=== PATIENT | male | born 1980 | race Caucasian/White ===

== ENCOUNTER 2018-04-08 06:02 | Inpatient (IN) | payer OTHER ==
[~2018-04-08] VITALS: Ht 190.5 cm; Wt 91.8 kg
--- NOTE | 2018-04-08 06:25 | NUR ---
PT PRESENTED WITH C/O COUGH AND HIGH FEVERS X 3 DAYS SINCE RETURNING HOME FROM [place]. DENIES NAUSEA AT THIS TIME, DID VOMIT X 2 AT 2130 AND 2230 LAST NIGHT. DENIES DIARRHEA. MONITORS APPLIED, FAMILY AT BEDSIDE, SIDERAILS UP X2, CALL LIGHT WITHIN REACH. AWAITING ERP FOR EVAL AND ORDERS
[2018-04-08] MEDS ORDERED: IBUPROFEN 200 MG TABLET ONE (06:39)
[2018-04-08] MEDS ORDERED: ACETAMINOPHEN 500 MG TABLET ONE (06:39)
[2018-04-08] MEDS ORDERED: IBUPROFEN 800 MG TABLET ONE (06:42)
--- NOTE | 2018-04-08 06:45 | NUR ---
PT MEDICATED PER MAR. PT TO XRAY
[2018-04-08] MEDS ORDERED: ACETAMINOPHEN 500 MG TABLET PO ONE (07:00)
[2018-04-08] MEDS ORDERED: SODIUM CHLORIDE 0.9% 1,000ML IVBOLUS ONE (07:00)
[2018-04-08] MEDS ORDERED: IBUPROFEN 800 MG TABLET PO SCH (07:00)
[2018-04-08] MEDS ORDERED: ALBUTEROL/IPRATROPIUM 2.5MG/0.5MG, 3 ML NPPB ONE (07:00)
--- NOTE | 2018-04-08 07:05 | NUR ---
REPORT GIVEN TO VERA ESCOBAR
--- NOTE | 2018-04-08 07:05 | NUR ---
received report from Francia, lab at BS. pt upright on gurney awake & comfortable, responds approp to staff, NAD, comfort measures provided, at BS, call light within reach.
[2018-04-08 07:08] LABS: MEAN CORPUSCULAR HEMOGLOBIN 29.6 pg (27.5-34.5); MEAN PLATELET VOLUME 8.1 fL (7.4-10.4); PLATELET COUNT 175 x10^3/uL (130-400); RED BLOOD COUNT 5.23 x10^6/uL (4.38-5.82); RED CELL DISTRIBUTION WIDTH 12.8 % (9.4-14.8)
[2018-04-08] MEDS ORDERED: ALBUTEROL/IPRATROPIUM 2.5MG/0.5MG, 3 ML ONE (07:08)
--- NOTE | 2018-04-08 07:09 | NUR ---
LATE ENTRY 1899-PT AT XRAY AND OVERHEAD REQUESTING ASSISTANCE, FOUND PT LAYING ON FLOOR WITH PILLOW UNDER HIS HEAD, PER [employer] SUPER[employer] PT FELT DIZZZY SO HE LOWERED PT TO THE GROUND, DENIES INJURY OR LOC, PA AT PT'S SIDE FOR EVAL. PT ASSISTED BACK TO ROOM VIA KAYLEE, PT NOW RESTING ON RICHARD PAGE TO PLACE ORDER FOR PORTABLE CXY
[2018-04-08 07:20] LABS: ALBUMIN 3.9 g/dL (3.4-5.0); ANION GAP 6 mmol/L (5-15); CHLORIDE 100 mmol/L (98-107); CREATININE 1.19 mg/dL (0.7-1.3)
[2018-04-08 07:32] LABS: MD YES
[2018-04-08 07:34] LABS: <RBC MORPHOLOGY> NORMAL; BAND#(MANUAL) 3.58 x10^3/uL; BANDS%(MANUAL) 24 % (0-7); LYMPH#(MANUAL) 1.19 x10^3/uL (1-3.4); LYMPHS% (MANUAL) 8 % (22-44); MONOS#(MANUAL) 1.49 x10^3/uL (0.3-2.7); MONOS% (MANUAL) 10 % (2-9); SEG#(MANUAL) 8.64 x10^3/uL (1.8-6.8); SEGS% (MANUAL) 58 % (42-75)
[2018-04-08 07:35] LABS: <PLATELET ESTIMATE> ADEQUATE; <PLT MORPHOLOGY> NORMAL PLT MORPH
[2018-04-08 07:39] LABS: RAPID INFLUENZA A POSITIVE (Negative); RAPID INFLUENZA B Negative (Negative)
[2018-04-08] MEDS ORDERED: CEFTRIAXONE PMX 1GM/50ML 50 ML ONE (07:57)
[2018-04-08] MEDS ORDERED: CEFTRIAXONE PMX 1GM/50ML 50 ML IV ONE (08:00)
[2018-04-08] MEDS ORDERED: AZITHROMYCIN 500 MG in SODIUM CHLORIDE 0.9% 250 ML IV ONE (08:00)
[2018-04-08] MEDS ORDERED: OSELTAMIVIR 75 MG CAPSULE PO ONE (08:00)
--- NOTE | 2018-04-08 08:03 | NUR ---
pt remains upright on gurney awake & comfortable, responds approp to staff, NAD, comfort measures provided, at BS, call light within reach. pt to CT
--- NOTE | 2018-04-08 08:15 | NUR ---
pt returned from CT, SpO2 @ 89% RA, improvement with suppl O2 applied- ERP aware.
[2018-04-08] MEDS ORDERED: OMNIPAQUE 350 MG/ML, 100ML BOTTLE ONE (08:29)
--- NOTE | 2018-04-08 09:02 | NUR ---
pt remains upright on gurney sleeping, responds approp to staff, NAD, comfort measures provided, at BS, call light within reach.
--- NOTE | 2018-04-08 09:57 | NUR ---
pt upright on gurney awake & comfortable, able to doze off, responds approp to staff, NAD, comfort measures provided, at BS, call light within reach.
--- NOTE | 2018-04-08 09:59 | NUR ---
seen by Lisa
[2018-04-08] MEDS: SODIUM CHLORIDE 0.9% 1,000 ML IV SCH ×2 (10:29→18:02)
[2018-04-08] MEDS: AZITHROMYCIN 500 MG in SODIUM CHLORIDE 0.9% 250 ML IV SCH (10:29)
[2018-04-08] MEDS ORDERED: ENOXAPARIN 40 MG/0.4 ML ONE (10:30)
[2018-04-08] MEDS ORDERED: ACETAMINOPHEN 325 MG TABLET PO PRN (10:30)
[2018-04-08] MEDS ORDERED: ONDANSETRON ODT 4 MG PO PRN (10:30)
[2018-04-08] MEDS ORDERED: GUAIFENESIN/DM 200-20MG, 10ML UDC PO PRN (10:30)
[2018-04-08] MEDS ORDERED: IBUPROFEN 600 MG TABLET PO PRN (10:30)
[2018-04-08] MEDS ORDERED: ONDANSETRON 2MG/ML, 2ML IVPush PRN (10:30)
--- NOTE | 2018-04-08 10:35 | NUR ---
Pt to be admitted to [facility], room 408. Report called to Gabrielle.
[2018-04-08] MEDS: ENOXAPARIN 40 MG/0.4 ML SQ SCH (10:45)
[2018-04-08] MEDS ORDERED: CEFTRIAXONE PMX 1GM/50ML 50 ML IV SCH (11:00)
--- NOTE | 2018-04-08 11:06 | NUR ---
pt remains upright on gurney awake & comfortable, able to doze off, responds approp to staff, NAD, comfort measures provided, at BS, call light within reach.
[2018-04-08] MEDS ORDERED: ENOXAPARIN 40 MG/0.4 ML SQ SCH (11:30)
[2018-04-08 11:45] VITALS: BP 99/67
[2018-04-08 15:37] VITALS: BP 112/71
[2018-04-08 19:50] VITALS: BP 106/69
[2018-04-08] MEDS: OSELTAMIVIR 75 MG CAPSULE PO SCH (20:30)
[2018-04-09] MEDS: SODIUM CHLORIDE 0.9% 1,000 ML IV SCH ×3 (00:51→08:23)
[2018-04-09 01:26] VITALS: BP 105/69
[2018-04-09 05:55] LABS: CHLORIDE 111 mmol/L (98-107)
[2018-04-09 06:04] LABS: ALANINE AMINOTRANSFERASE 19 U/L (12-78); ALKALINE PHOSPHATASE 51 U/L (45-117); ANION GAP 5 mmol/L (5-15); BILIRUBIN,TOTAL 0.5 mg/dL (0.2-1.0); CALCIUM 8.4 mg/dL (8.5-10.1); TOTAL PROTEIN 6.3 g/dL (6.4-8.2)
[2018-04-09 06:08] LABS: MEAN CORPUSCULAR HEMOGLOBIN 30.1 pg (27.5-34.5); MEAN CORPUSCULAR VOLUME 88.7 fL (81-97); MEAN PLATELET VOLUME 8.4 fL (7.4-10.4); PLATELET COUNT 158 x10^3/uL (130-400); RED BLOOD COUNT 4.58 x10^6/uL (4.38-5.82); RED CELL DISTRIBUTION WIDTH 13.6 % (9.4-14.8)
[2018-04-09 06:34] LABS: MD YES
[2018-04-09 06:35] LABS: BAND#(MANUAL) 0.41 x10^3/uL; BANDS%(MANUAL) 6 % (0-7); LYMPH#(MANUAL) 1.29 x10^3/uL (1-3.4); LYMPHS% (MANUAL) 19 % (22-44); MONOS#(MANUAL) 0.54 x10^3/uL (0.3-2.7); MONOS% (MANUAL) 8 % (2-9); SEG#(MANUAL) 4.56 x10^3/uL (1.8-6.8); SEGS% (MANUAL) 67 % (42-75)
[2018-04-09 06:36] LABS: <PLATELET ESTIMATE> ADEQUATE; <PLT MORPHOLOGY> NORMAL PLT MORPH; <RBC MORPHOLOGY> NORMAL
[2018-04-09 06:48] VITALS: BP 122/78
[2018-04-09] MEDS: OSELTAMIVIR 75 MG CAPSULE PO SCH ×2 (08:22→20:15)
[2018-04-09] MEDS: CEFTRIAXONE PMX 1GM/50ML 50 ML IV SCH (08:23)
[2018-04-09] MEDS: ENOXAPARIN 40 MG/0.4 ML SQ SCH (10:30)
[2018-04-09] MEDS: AZITHROMYCIN 500 MG in SODIUM CHLORIDE 0.9% 250 ML IV SCH (10:54)
[2018-04-09 13:00] VITALS: BP 112/70
[2018-04-09 20:32] VITALS: BP 118/76
[2018-04-10 02:53] VITALS: BP 106/68
[2018-04-10 05:04] LABS: HCT (SEDRATE) 43.1 % (39.2-51.8)
[2018-04-10 05:15] LABS: CHLORIDE 107 mmol/L (98-107)
[2018-04-10 05:29] LABS: ANION GAP 5 mmol/L (5-15); CALCIUM 9.2 mg/dL (8.5-10.1); CREATININE 0.84 mg/dL (0.7-1.3)
[2018-04-10 06:18] LABS: MEAN CORPUSCULAR HEMOGLOBIN 29.9 pg (27.5-34.5); MEAN CORPUSCULAR VOLUME 88.1 fL (81-97); MEAN PLATELET VOLUME 8.4 fL (7.4-10.4); PLATELET COUNT 182 x10^3/uL (130-400); RED BLOOD COUNT 4.91 x10^6/uL (4.38-5.82); RED CELL DISTRIBUTION WIDTH 13.3 % (9.4-14.8)
[2018-04-10 06:38] LABS: MD YES
[2018-04-10 06:40] LABS: BAND#(MANUAL) 0.38 x10^3/uL; BANDS%(MANUAL) 8 % (0-7); EOS#(MANUAL) 0.14 x10^3/uL (0.0-0.4); EOS% (MANUAL) 3 % (1-7); MONOS#(MANUAL) 0.52 x10^3/uL (0.3-2.7); MONOS% (MANUAL) 11 % (2-9); SEGS% (MANUAL) 41 % (42-75)
[2018-04-10 06:41] LABS: <PLATELET ESTIMATE> ADEQUATE; <PLT MORPHOLOGY> NORMAL PLT MORPH; <RBC MORPHOLOGY> NORMAL; LYMPH#(MANUAL) 1.74 x10^3/uL (1-3.4); LYMPHS% (MANUAL) 37 % (22-44); SEG#(MANUAL) 1.93 x10^3/uL (1.8-6.8)
[2018-04-10 06:57] VITALS: BP 126/83
[2018-04-10] MEDS: ENOXAPARIN 40 MG/0.4 ML SQ SCH (09:43)
[2018-04-10] MEDS: OSELTAMIVIR 75 MG CAPSULE PO SCH (09:43)
[2018-04-10] MEDS: CEFTRIAXONE PMX 1GM/50ML 50 ML IV SCH (09:43)
[2018-04-10] MEDS: AZITHROMYCIN 500 MG in SODIUM CHLORIDE 0.9% 250 ML IV SCH (10:30)
[2018-04-10] MEDS ORDERED: AMOX1TAB64 PO (10:36)
[2018-04-10] MEDS ORDERED: OSEL75CA PO (10:36)
[2018-04-10 12:58] VITALS: BP 123/78
== END 2018-04-10 13:27 | disposition home or self-care (01) | DRG 871 ==
LOC: ED 08:36 → EDIP 09:01 → 4WST 11:19
PROVIDERS: ADMIT Hospitalist; ATTEND Hospitalist
DX: A41.9 Sepsis, unspecified organism (principal); J10.08 Influenza due to other identified influenza virus with other specified pneumonia; J96.01 Acute respiratory failure with hypoxia; J12.9 Viral pneumonia, unspecified; E87.1 Hypo-osmolality and hyponatremia; R73.9 Hyperglycemia, unspecified; Z89.429 Acquired absence of other toe(s), unspecified side
CPT/HCPCS: 36415; 84145; 87400; 87806; 99285; J7620; 71045; 71046; 71275; 80048; 80053; 82040; 83605; 85025; 85651; 86140; 87040; 87070; 87205; 93005; 94640; 96360; G0378; J0456; J0696; J1650; Q9967; G0475; J7030; J7050